=== PATIENT | female | born 1960 | race Caucasian/White ===

== ENCOUNTER 2017-06-27 15:12 | Emergency (ER) | payer OTHER ==
[~2017-06-27] VITALS: Ht 157.5 cm; Wt 69.0 kg
[~2017-06-27 15:12] MED LIST: NOHOMEMEDS; SYNTHROID75 MCG PO
[2017-06-27 16:09] LABS: HEMATOCRIT 42.1 % (36.0-46.0); MCHC 35.4 G/DL (30.0-36.0); MCV 87.7 FL (83-99); MEAN PLAT.VOLUME 9.7 uM^3 (9.5-12.4); PLATELET COUNT 292 K/uL (156-360); RBC DIS.WIDTH-SD 41.5 % (39-53)
[2017-06-27 16:18] LABS: CHLORIDE 102 mEq/L (99-109); SODIUM 138 mEq/L (136-147)
[2017-06-27 16:20] LABS: GLUCOSE 102 mg/dL (70-99)
[2017-06-27 16:21] LABS: ANION GAP 14 MEQ/L (2-14)
[2017-06-27 16:24] LABS: GFR ESTIMATE (CALCULATED) > 59 mL/min/; UREA NITROGEN (BUN) 11 mg/dL (9-23)
[2017-06-27 16:31] LABS: TROP-I INTERPRETATION NEGATIVE; TROPONIN-I < 0.01 ng/mL (0.0-0.30)
[2017-06-27 16:36] LABS: ADD MIUA? NO; BILIRUBIN NEGATIVE; BLOOD NEGATIVE; COLOR STRAW ((YELLOW)); GLUCOSE (STRIP) NEGATIVE; KETONES NEGATIVE; LEUKOCYTES NEGATIVE; NITRITE NEGATIVE; PROTEIN (STRIP) NEGATIVE; SPECIFIC GRAVITY 1.005 (1.000-1.030); UCUL ADDED? NO; UROBILINOGEN 0.2 MG/DL (0.2-1.0)
[2017-06-27 16:42] LABS: TOTAL BILIRUBIN 0.3 mg/dL (0.0-1.0)
[2017-06-27 16:43] LABS: ALKALINE PHOSPHATASE 78 IU/L (3-129)
[2017-06-27 16:45] LABS: DIRECT BILIRUBIN 0.1 mg/dL (0.0-0.3)
[2017-06-27 16:46] LABS: LIPASE 23 U/L (1.0-51.0)
[2017-06-27 17:16] LABS: D-DIMER ELISA < 150.00 ng/mLDDU (<230)
[2017-06-27 18:55] LABS: TROP-I INTERPRETATION NEGATIVE; TROPONIN-I < 0.01 ng/mL (0.0-0.30)
[2017-06-27] MEDS ORDERED: ZOFRAN ODT4 MG PO (19:38)
[2017-06-27 20:17] VITALS: BP 122/76
== END 2017-06-27 20:25 | disposition home or self-care (01) ==
LOC: EME 15:12
PROVIDERS: Nurse Practitioner Family
DX: R07.89 Other chest pain (principal); H57.13 Ocular pain, bilateral; F17.200 Nicotine dependence, unspecified, uncomplicated; Z71.6 Tobacco abuse counseling; I10 Essential (primary) hypertension; E78.5 Hyperlipidemia, unspecified; I38 Endocarditis, valve unspecified; E03.9 Hypothyroidism, unspecified; F32.9 Major depressive disorder, single episode, unspecified; Z91.040 Latex allergy status
CPT/HCPCS: 71020; 80048; 80076; 81003; 83690; 84484; 85027; 85379; 93005; 99281; 99284

== ENCOUNTER 2017-08-07 14:50 | Emergency (ER) | payer OTHER ==
[~2017-08-07] VITALS: Ht 157.5 cm; Wt 68.3 kg
[~2017-08-07 14:50] MED LIST changes: +ZOFRAN ODT4 MG PO
[2017-08-07 15:19] LABS: HEMATOCRIT 40.7 % (36.0-46.0); MCHC 34.2 G/DL (30.0-36.0); MCV 90.8 FL (83-99); MEAN PLAT.VOLUME 9.3 uM^3 (9.5-12.4); PLATELET COUNT 290 K/uL (156-360); RBC DIS.WIDTH-CV 12.7 % (11.8-14.6); RBC DIS.WIDTH-SD 42.5 % (39-53); RED BLOOD COUNT 4.48 M/uL (3.80-5.20); WHITE BLOOD COUNT 8.7 K/uL (4.1-10.2)
[2017-08-07 15:30] LABS: CHLORIDE 104 mEq/L (99-109); SODIUM 140 mEq/L (136-147)
[2017-08-07 15:31] LABS: GLUCOSE 92 mg/dL (70-99)
[2017-08-07 15:33] LABS: ANION GAP 11 MEQ/L (2-14)
[2017-08-07 15:35] LABS: GFR ESTIMATE (CALCULATED) > 59 mL/min/
[2017-08-07 15:36] LABS: UREA NITROGEN (BUN) 11 mg/dL (9-23)
[2017-08-07 16:01] LABS: ADD MIUA? YES; BILIRUBIN NEGATIVE; BLOOD SMALL; COLOR YELLOW ((YELLOW)); GLUCOSE (STRIP) NEGATIVE; KETONES 5; LEUKOCYTES TRACE; NITRITE NEGATIVE; PROTEIN (STRIP) NEGATIVE; SPECIFIC GRAVITY 1.009 (1.000-1.030); UROBILINOGEN 0.2 MG/DL (0.2-1.0)
[2017-08-07 16:12] LABS: BACTERIA RARE /HPF; EPITHELIAL CELLS RARE /HPF; MUCUS TRACE /LPF; RED BLOOD CELLS 0-5 /HPF (0-5); UCUL ADDED? NO; UNCLASSIFIED CRYSTALS 1+ /HPF; WHITE BLOOD CELLS 0-5 /HPF (0-5)
[2017-08-07 16:53] LABS: TOTAL BILIRUBIN 0.4 mg/dL (0.0-1.0)
[2017-08-07 16:54] LABS: ALKALINE PHOSPHATASE 60 IU/L (3-129)
[2017-08-07 16:57] LABS: DIRECT BILIRUBIN 0.2 mg/dL (0.0-0.3)
[2017-08-07 16:58] LABS: LIPASE 27 U/L (1.0-51.0)
[2017-08-07 17:03] LABS: TROP-I INTERPRETATION NEGATIVE; TROPONIN-I < 0.01 ng/mL (0.0-0.30)
[2017-08-07] MEDS ORDERED: BENTYL10 MG PO (20:38)
[2017-08-07 21:03] VITALS: BP 135/74
== END 2017-08-07 21:04 | disposition home or self-care (01) ==
LOC: EME 14:50
DX: R10.11 Right upper quadrant pain (principal); R11.0 Nausea; R00.2 Palpitations; F17.200 Nicotine dependence, unspecified, uncomplicated
CPT/HCPCS: 74177; 80048; 80076; 81003; 83690; 84484; 85027; 93005; 99281; 99284; J1885; J2765; J7030

== ENCOUNTER 2017-08-10 22:24 | Emergency (ER) | payer OTHER ==
[~2017-08-10] VITALS: Ht 157.5 cm; Wt 71.4 kg
[~2017-08-10 22:24] MED LIST changes: +BENTYL10 MG PO
[2017-08-10 23:18] LABS: BASOPHIL COUNT 0.1 K/uL (0-0.1); EOSINOPHIL (%) 1.6 % (0-5); EOSINOPHIL COUNT 0.1 K/uL (0-0.3); HEMATOCRIT 38.1 % (36.0-46.0); IMMATURE GRANULOCYTE (%) 0.2 % (0.0-0.7); MCH 31.2 PG (29.0-34.0); MCHC 35.2 G/DL (30.0-36.0); MCV 88.8 FL (83-99); MEAN PLAT.VOLUME 9.7 uM^3 (9.5-12.4); MONOCYTE (%) 7.3 % (3-12); MONOCYTE COUNT 0.7 K/uL (0-0.8); NEUTROPHIL (%) 56.2 % (45-76); PLATELET COUNT 280 K/uL (156-360); RBC DIS.WIDTH-CV 12.3 % (11.8-14.6); RBC DIS.WIDTH-SD 39.9 % (39-53); RED BLOOD COUNT 4.29 M/uL (3.80-5.20); WHITE BLOOD COUNT 8.9 K/uL (4.1-10.2)
[2017-08-10 23:27] LABS: CHLORIDE 104 mEq/L (99-109); POTASSIUM 3.3 mEq/L (3.7-5.4); SODIUM 138 mEq/L (136-147)
[2017-08-10 23:29] LABS: GLUCOSE 100 mg/dL (70-99)
[2017-08-10 23:30] LABS: ANION GAP 12 MEQ/L (2-14)
[2017-08-10 23:32] LABS: PROTHROMBIN TIME 11.9 SEC (10.2-12.9)
[2017-08-10 23:33] LABS: ALKALINE PHOSPHATASE 60 IU/L (3-129); GFR ESTIMATE (CALCULATED) > 59 mL/min/
[2017-08-10 23:34] LABS: TOTAL BILIRUBIN 0.5 mg/dL (0.0-1.0); UREA NITROGEN (BUN) 7 mg/dL (9-23)
[2017-08-10 23:35] LABS: PTT 26.4 SEC (25-37)
[2017-08-10 23:36] LABS: LIPASE 20 U/L (1.0-51.0)
[2017-08-10 23:39] LABS: TROP-I INTERPRETATION NEGATIVE; TROPONIN-I < 0.01 ng/mL (0.0-0.30)
[2017-08-11 00:10] LABS: ERTH.SED.RATE 6 MM/HR (0-30)
[2017-08-11 03:28] VITALS: BP 137/85
== END 2017-08-11 03:30 | disposition home or self-care (01) ==
LOC: EME → EDBD 22:24 → EME 08-11 03:30
PROVIDERS: Emergency Medicine
DX: R51 Headache (principal); E78.5 Hyperlipidemia, unspecified; F32.9 Major depressive disorder, single episode, unspecified; F41.0 Panic disorder [episodic paroxysmal anxiety]; F17.200 Nicotine dependence, unspecified, uncomplicated; Z88.5 Allergy status to narcotic agent; Z91.040 Latex allergy status
CPT/HCPCS: 70450; 70496; 80053; 83690; 84484; 85025; 85610; 85651; 85730; 93005; 99281; 99285; J1100; J2765; J7030

== ENCOUNTER 2017-08-12 18:31 | Emergency (ER) | payer OTHER ==
[~2017-08-12] VITALS: Ht 157.5 cm; Wt 72.4 kg
[2017-08-12 19:40] LABS: BASOPHIL COUNT 0.1 K/uL (0-0.1); EOSINOPHIL (%) 0.7 % (0-5); EOSINOPHIL COUNT 0.1 K/uL (0-0.3); HEMATOCRIT 39.3 % (36.0-46.0); IMMATURE GRANULOCYTE (%) 0.3 % (0.0-0.7); INSTRUMENT ABS NEUTROPHIL CT 8.2 K/uL; LYMPHOCYTE COUNT 4.1 K/uL (1.0-2.8); MCH 31.1 PG (29.0-34.0); MCHC 34.9 G/DL (30.0-36.0); MCV 89.1 FL (83-99); MEAN PLAT.VOLUME 9.9 uM^3 (9.5-12.4); MONOCYTE (%) 6.3 % (3-12); MONOCYTE COUNT 0.8 K/uL (0-0.8); NEUTROPHIL (%) 61.2 % (45-76); NEUTROPHIL COUNT 8.2 K/uL (1.8-6.4); PLATELET COUNT 289 K/uL (156-360); RBC DIS.WIDTH-CV 12.6 % (11.8-14.6); RBC DIS.WIDTH-SD 41.1 % (39-53); RED BLOOD COUNT 4.41 M/uL (3.80-5.20); WHITE BLOOD COUNT 13.4 K/uL (4.1-10.2)
[2017-08-12 19:58] LABS: CHLORIDE 104 mEq/L (99-109); POTASSIUM 3.6 mEq/L (3.7-5.4); SODIUM 140 mEq/L (136-147)
[2017-08-12 20:00] LABS: GLUCOSE 96 mg/dL (70-99)
[2017-08-12 20:01] LABS: ANION GAP 13 MEQ/L (2-14)
[2017-08-12 20:02] LABS: TOTAL BILIRUBIN 0.5 mg/dL (0.0-1.0)
[2017-08-12 20:03] LABS: ALKALINE PHOSPHATASE 57 IU/L (3-129)
[2017-08-12 20:04] LABS: GFR ESTIMATE (CALCULATED) > 59 mL/min/
[2017-08-12 20:05] LABS: UREA NITROGEN (BUN) 7 mg/dL (9-23)
[2017-08-12 20:07] LABS: LIPASE 19 U/L (1.0-51.0)
[2017-08-12 20:59] LABS: ADD MIUA? YES; BILIRUBIN NEGATIVE; BLOOD SMALL; COLOR STRAW ((YELLOW)); GLUCOSE (STRIP) NEGATIVE; KETONES NEGATIVE; LEUKOCYTES NEGATIVE; NITRITE NEGATIVE; PROTEIN (STRIP) NEGATIVE; SPECIFIC GRAVITY 1.004 (1.000-1.030); UROBILINOGEN 0.2 MG/DL (0.2-1.0)
[2017-08-12 21:05] LABS: BACTERIA RARE /HPF; CALCIUM OXALATE CRYSTALS 1+ /HPF; EPITHELIAL CELLS RARE /HPF; MUCUS NONE SEEN /LPF; RED BLOOD CELLS 0-5 /HPF (0-5); UCUL ADDED? NO; WHITE BLOOD CELLS 0-5 /HPF (0-5)
[2017-08-12 22:09] VITALS: BP 118/62
[2017-08-13] MEDS ORDERED: ROXICODONE5 MG PO (17:27)
[2017-08-13] MEDS ORDERED: MOTRIN600 MG PO (17:27)
[2017-08-13] MEDS ORDERED: PRILOSEC OTC20 MG PO (17:27)
[2017-08-13] MEDS ORDERED: CARAFATE1 GM PO (17:27)
== END 2017-08-12 22:10 | disposition home or self-care (01) ==
LOC: EME 18:31
PROVIDERS: Emergency Medicine
DX: I10 Essential (primary) hypertension (principal); R10.9 Unspecified abdominal pain; F41.9 Anxiety disorder, unspecified; R11.0 Nausea; D72.829 Elevated white blood cell count, unspecified; E07.9 Disorder of thyroid, unspecified; F17.200 Nicotine dependence, unspecified, uncomplicated
CPT/HCPCS: 80053; 81003; 83690; 84443; 85025; 93005; 99281; 99285

== ENCOUNTER 2017-08-13 13:58 | Emergency (ER) | payer OTHER ==
[~2017-08-13] VITALS: Ht 157.5 cm; Wt 70.3 kg
[2017-08-13 15:26] LABS: BASOPHIL COUNT 0.1 K/uL (0-0.1); EOSINOPHIL (%) 1.3 % (0-5); EOSINOPHIL COUNT 0.1 K/uL (0-0.3); HEMATOCRIT 37.5 % (36.0-46.0); IMMATURE GRANULOCYTE (%) 0.3 % (0.0-0.7); INSTRUMENT ABS NEUTROPHIL CT 5.7 K/uL; LYMPHOCYTE COUNT 3.8 K/uL (1.0-2.8); MCH 31.2 PG (29.0-34.0); MCHC 34.1 G/DL (30.0-36.0); MCV 91.5 FL (83-99); MEAN PLAT.VOLUME 9.6 uM^3 (9.5-12.4); MONOCYTE (%) 6.5 % (3-12); MONOCYTE COUNT 0.7 K/uL (0-0.8); NEUTROPHIL COUNT 5.7 K/uL (1.8-6.4); PLATELET COUNT 276 K/uL (156-360); RBC DIS.WIDTH-CV 12.8 % (11.8-14.6); RBC DIS.WIDTH-SD 43.2 % (39-53); WHITE BLOOD COUNT 10.4 K/uL (4.1-10.2)
[2017-08-13 15:32] LABS: D-DIMER ELISA < 150.00 ng/mLDDU (<230)
[2017-08-13 15:35] LABS: CHLORIDE 103 mEq/L (99-109); SODIUM 140 mEq/L (136-147)
[2017-08-13 15:38] LABS: GLUCOSE 101 mg/dL (70-99)
[2017-08-13 15:39] LABS: ANION GAP 12 MEQ/L (2-14)
[2017-08-13 15:41] LABS: ALKALINE PHOSPHATASE 54 IU/L (3-129); GFR ESTIMATE (CALCULATED) > 59 mL/min/; TOTAL BILIRUBIN 0.3 mg/dL (0.0-1.0)
[2017-08-13 15:42] LABS: UREA NITROGEN (BUN) 10 mg/dL (9-23)
[2017-08-13 15:45] LABS: LIPASE 16 U/L (1.0-51.0)
[2017-08-13] MEDS ORDERED: ROXICODONE5 MG PO (17:27)
[2017-08-13] MEDS ORDERED: CARAFATE1 GM PO (17:27)
[2017-08-13] MEDS ORDERED: MOTRIN600 MG PO (17:27)
[2017-08-13] MEDS ORDERED: PRILOSEC OTC20 MG PO (17:27)
[2017-08-13 18:48] VITALS: BP 152/80
== END 2017-08-13 18:48 | disposition home or self-care (01) ==
LOC: EME 13:58
PROVIDERS: Emergency Medicine
DX: R10.11 Right upper quadrant pain (principal); R07.89 Other chest pain; E03.9 Hypothyroidism, unspecified; E78.5 Hyperlipidemia, unspecified
CPT/HCPCS: 71020; 76705; 80053; 83690; 85025; 85379; 99281; 99285; J1885; S0028